=== PATIENT | female | born 1995 | race African-American/Black ===

== ENCOUNTER 2024-05-24 11:02 | Emergency (ER) | payer SELFPAY ==
[~2024-05-24] VITALS: Ht 160 cm; Wt 89.4 kg
[2024-05-24 11:07] VITALS: O2SAT 100
[2024-05-24] MEDS: FAMOTIDINE 20MG TABLET PO ONE (11:47)
[2024-05-24] MEDS: ONDANSETRON 4MG ODT PO ONE (11:47)
[2024-05-24] MEDS: MAGNESIUM/ALUMINUM HYDROXIDE/SIMETHICONE 30ML UDC PO ONE (11:47)
[2024-05-24 12:04] LABS: BASOPHILS % 0.3 % (0.0-2.0); EOSINOPHILS % 0.9 % (0.0-5.0); HEMATOCRIT. 37.4 % (36.0-48.0); HEMOGLOBIN. 11.9 g/dL (12.0-16.0); LYMPHOCYTES % 37.2 % (20.0-50.0); MEAN CORPUSCULAR HGB CONC 31.9 g/dL (31.0-37.0); MEAN CORPUSCULAR VOLUME 90.8 fL (81.0-99.0); MEAN PLATELET VOLUME 7.9 fl (7.4-10.4); MONOCYTES % 8.8 % (2.0-8.0); NEUTROPHILS % 52.8 % (40.0-76.0); PLATELET 351 x1000/uL (130-400); RED BLOOD CELL COUNT 4.12 mill/uL (4.2-5.4); RED CELL DISTRIBUTION WIDTH 15.2 % (11.6-14.6)
[2024-05-24 12:14] LABS: CHLORIDE 110 mEq/L (98-107); POTASSIUM 3.8 mEq/L (3.5-5.1); SODIUM 140 mEq/L (136-145)
[2024-05-24 12:15] LABS: CARBON DIOXIDE 24 mEq/L (21-32)
[2024-05-24 12:16] LABS: CALCIUM 9.1 mg/dL (8.7-10.4)
[2024-05-24 12:20] LABS: CREATININE 0.9 mg/dL (0.6-1.0); GLUCOSE 89 mg/dL (70-105); UREA NITROGEN BLOOD 9 mg/dL (9-23)
[2024-05-24 12:22] LABS: ALANINE AMINOTRANSFERASE 10 IU/L (10-49); ALBUMIN 4.1 g/dL (3.2-4.8); ASPARTATE AMINOTRANSFERASE 16 IU/L (<34); BILIRUBIN DIRECT 0.1 mg/dL (<=3.0)
[2024-05-24 12:23] LABS: BILIRUBIN TOTAL 0.4 mg/dL (0.1-1.0)
[2024-05-24 12:44] LABS: CLARITY URINE CLEAR (CLEAR); COLOR URINE YELLOW (YELLOW); GLUCOSE URINE NEGATIVE (NEGATIVE); KETONES URINE NEGATIVE (NEGATIVE); LEUKOCYTE ESTERASE URINE 1+ (NEGATIVE); NITRITE URINE NEGATIVE (NEGATIVE); OCCULT BLOOD URINE NEGATIVE (NEGATIVE); PROTEIN URINE NEGATIVE (NEGATIVE); SPECIFIC GRAVITY URINE 1.015 (1.005-1.030); UROBILINOGEN URINE 0.2 E.U./dL (0.2-1.0)
[2024-05-24 13:14] LABS: SQUAMOUS EPITHELIAL CELL URINE 2+ /lpf (RARE/1+)
[2024-05-24 13:15] LABS: BACTERIA URINE 1+; WBC URINE 0-2 /hpf (0-2)
[2024-05-24] MEDS ORDERED: FAMO20TA8 MT (13:15)
[2024-05-24] MEDS ORDERED: MAG-55 MT (13:15)
[2024-05-24 13:16] LABS: RBC URINE NONE SEEN /hpf (0-2)
[2024-05-24 14:45] VITALS: BP 133/71; PULSE 61; RESP 18; TEMP 37.00296; O2SAT 100
== END 2024-05-24 14:45 | disposition home or self-care (01) ==
LOC: ER 11:02
DX: K29.70 Gastritis, unspecified, without bleeding (principal); K21.9 Gastro-esophageal reflux disease without esophagitis
CPT/HCPCS: 99284; 80076; 80048; 81003; 81025; 83690; 85025; 36415; Q0162